=== PATIENT | male | born 1955 | race Caucasian/White ===

== ENCOUNTER → 2018-07-14 | Outpatient (CLI) | payer MEDICARE, OTHER ==
[2018-07-14 12:06] LABS: HEMATOCRIT 43.6 % (42.0-52.0); HEMOGLOBIN 14.1 g/dl (13.5-17.5); MEAN CORPUSCULAR HEMOGLOBIN 29.7 pg (27.0-33.0); MEAN CORPUSCULAR HGB CONC 32.3 g/dl (32.0-36.5); PLATELET COUNT, AUTOMATED 232 10^3/uL (150-450); RED BLOOD COUNT 4.74 10^6/uL (4.30-6.10); WHITE BLOOD COUNT 8.1 10^3/uL (4.0-10.0)
[2018-07-14 12:17] LABS: INR 0.91; PROTHROMBIN TIME 12.3 SECONDS (12.1-14.4)
[2018-07-14 12:42] LABS: ALBUMIN 3.5 GM/DL (3.2-5.2); ALBUMIN/GLOBULIN RATIO 1.21 (1.00-1.93); ALKALINE PHOSPHATASE 88 U/L (45-117); ALT/SGPT 29 U/L (12-78); ANION GAP 8 MEQ/L (8-16); AST/SGOT 23 U/L (7-37); BILIRUBIN,TOTAL 0.8 MG/DL (0.2-1.0); BLOOD UREA NITROGEN 14 MG/DL (7-18); CALCIUM LEVEL 8.4 MG/DL (8.8-10.2); CARBON DIOXIDE LEVEL 30 MEQ/L (21-32); CHLORIDE LEVEL 105 MEQ/L (98-107); GLOMERULAR FILTRATION RATE > 60.0 (>49); GLUCOSE, FASTING 82 MG/DL (70-100); POTASSIUM SERUM 4.1 MEQ/L (3.5-5.1); SODIUM LEVEL 143 MEQ/L (136-145); TOTAL PROTEIN 6.4 GM/DL (6.4-8.2)
[2018-07-14 13:19] LABS: ERYTHROCYTE SEDIMENTATION RATE 15 mm/hr (0-20)
== END ==
LOC: M LAB 11:03
DX: Z01.818 Encounter for other preprocedural examination (principal); M16.12 Unilateral primary osteoarthritis, left hip
CPT/HCPCS: 71046

== ENCOUNTER 2018-08-10 05:46 | Inpatient (IN) | payer MEDICARE, OTHER ==
[2018-08-10] MEDS ORDERED: ONDANSETRON 4MG/2ML VIAL (J2405) As Ordered (05:52)
[2018-08-10] MEDS ORDERED: BUPIVACAINE/DEXTROSE 0.75% 2 ML AMP As Ordered (05:52)
[2018-08-10] MEDS ORDERED: LIDOCAINE 2% INJ 100 MG/5 ML SDV (FOR ANES.) As Ordered (05:52)
[2018-08-10] MEDS ORDERED: dexameTHASONE 4 MG/ML 1ML VIAL (J1100) As Ordered (05:52)
[2018-08-10] MEDS ORDERED: MIDAZOLAM INJ 2 MG/2 ML VIAL (J2250) As Ordered (05:53)
[2018-08-10] MEDS ORDERED: fentaNYL 100 MCG/2 ML INJECTION (J3010) As Ordered (05:53)
[2018-08-10] MEDS ORDERED: PROPOFOL 500 MG/50 ML VIAL As Ordered (05:53)
[2018-08-10] MEDS: LR 1,000 ML IV ×4 (06:58→23:01)
[2018-08-10] MEDS: CLINDAMYCIN INJ 900MG/6ML VIAL As Ordered (08:20)
[2018-08-10] MEDS ORDERED: PHENYLEPHRINE INJ 10MG/ML VIAL (J2370) As Ordered (08:56)
[2018-08-10] MEDS ORDERED: PHENYLephrine HCL 500 MCG/5 ML (100MCG/ML) SYRINGE (J2370) As Ordered (08:56)
[2018-08-10] MEDS: MULTIVITAMINS/MINERALS THERAP 1 TAB PO (09:00)
[2018-08-10] MEDS: EPINEPHrine INJ 1 MG/ML 1ML AMP As Ordered (09:01)
[2018-08-10] MEDS: TRANEXAMIC ACID 100 MG/ML 10ML VIAL As Ordered (09:01)
[2018-08-10] MEDS ORDERED: MORPHINE 1MG/ML IN 0.9% NACL 100ML IV BAG As Ordered (09:45)
[2018-08-10] MEDS ORDERED: MORPHINE 10 MG/ML 1ML VIAL (J2270) IV (10:15)
[2018-08-10] MEDS ORDERED: NALOXONE INJ 0.4 MG/1 ML VIAL (J2310) IV (10:15)
[2018-08-10] MEDS ORDERED: ONDANSETRON 4MG/2ML VIAL (J2405) IV ×3 (10:15)
[2018-08-10] MEDS ORDERED: fentaNYL 100 MCG/2 ML INJECTION (J3010) IV (10:15)
[2018-08-10] MEDS ORDERED: diphenhydrAMINE INJ 50MG/ML VIAL (J1200) IV (10:15)
[2018-08-10] MEDS ORDERED: FLEET ENEMA PR (10:15)
[2018-08-10] MEDS ORDERED: NALBUPHINE HCL 10 MG/ML AMP (J2300) IV (10:15)
[2018-08-10] MEDS ORDERED: EPIDURAL/PCA KEYS XX (10:15)
[2018-08-10] MEDS ORDERED: PERCOCET 5MG/325MG TAB PO (10:15)
[2018-08-10] MEDS ORDERED: ACETAMINOPHEN TAB 650MG DOSE (2X325MG) PO (10:15)
[2018-08-10] MEDS: MORPHINE 1MG/ML IN 0.9% NACL 100ML IV BAG IV (10:20)
[2018-08-10] MEDS: ceFAZolin SOD 1 GM in D5W MINI-BAG PLUS 50 ML IV (15:03)
[2018-08-10] MEDS: traZODone 100 MG TAB PO (20:34)
[2018-08-10] MEDS: FAMOTIDINE 20 MG TAB PO (20:34)
[2018-08-10] MEDS: SIMVASTATIN 40 MG TAB PO (20:34)
[2018-08-11] MEDS: ceFAZolin SOD 1 GM in D5W MINI-BAG PLUS 50 ML IV (00:03)
[2018-08-11] MEDS: LEVOTHYROXINE 137MCG TABLET (0.137MG) PO (06:12)
[2018-08-11] MEDS ORDERED: ONDANSETRON 4 MG TAB (S0181) PO (06:15)
[2018-08-11 06:44] LABS: HEMATOCRIT 32.4 % (42.0-52.0); HEMOGLOBIN 10.6 g/dl (13.5-17.5); MEAN CORPUSCULAR HEMOGLOBIN 29.5 pg (27.0-33.0); MEAN CORPUSCULAR HGB CONC 32.7 g/dl (32.0-36.5); MEAN CORPUSCULAR VOLUME 90.3 fl (80.0-96.0); PLATELET COUNT, AUTOMATED 179 10^3/uL (150-450); RED BLOOD COUNT 3.59 10^6/uL (4.30-6.10); RED CELL DISTRIBUTION WIDTH 13.1 % (11.5-14.5); WHITE BLOOD COUNT 11.8 10^3/uL (4.0-10.0)
[2018-08-11 08:32] LABS: ANION GAP 5 MEQ/L (8-16); BLOOD UREA NITROGEN 21 MG/DL (7-18); CALCIUM LEVEL 7.6 MG/DL (8.8-10.2); CARBON DIOXIDE LEVEL 28 MEQ/L (21-32); CHLORIDE LEVEL 105 MEQ/L (98-107); GLOMERULAR FILTRATION RATE > 60.0 (>49); GLUCOSE, FASTING 124 MG/DL (70-100); MAGNESIUM LEVEL 1.9 MG/DL (1.8-2.4); POTASSIUM SERUM 4.9 MEQ/L (3.5-5.1); SODIUM LEVEL 138 MEQ/L (136-145)
[2018-08-11] MEDS: MULTIVITAMINS/MINERALS THERAP 1 TAB PO (08:36)
[2018-08-11] MEDS: FAMOTIDINE 20 MG TAB PO ×2 (08:36→21:30)
[2018-08-11] MEDS: FEXOFENADINE 60 MG TAB PO (08:36)
[2018-08-11] MEDS: SENOKOT S TAB PO ×2 (08:36→21:30)
[2018-08-11] MEDS: MOM 30ML SUSPENSION UDC PO (08:36)
[2018-08-11] MEDS: DULoxetine 30 MG CAP (CYMBALTA) PO (08:36)
[2018-08-11] MEDS: MIRALAX *UNIT DOSE* 17GM PACKET PO (08:36)
[2018-08-11] MEDS: ARIPiprazole 15 MG TAB (AbiLIFY) PO (11:36)
[2018-08-11] MEDS: PERCOCET 5MG/325MG TAB PO ×3 (11:48→21:30)
[2018-08-11] MEDS: RIVAROXABAN 10 MG TAB (XARELTO) PO (17:47)
[2018-08-11] MEDS: SIMVASTATIN 40 MG TAB PO (21:30)
[2018-08-12] MEDS: PERCOCET 5MG/325MG TAB PO ×4 (05:45→21:53)
[2018-08-12] MEDS: LEVOTHYROXINE 137MCG TABLET (0.137MG) PO (05:45)
[2018-08-12 06:37] LABS: MEAN CORPUSCULAR HGB CONC 32.3 g/dl (32.0-36.5); MEAN CORPUSCULAR VOLUME 89.9 fl (80.0-96.0); PLATELET COUNT, AUTOMATED 174 10^3/uL (150-450); RED BLOOD COUNT 3.45 10^6/uL (4.30-6.10); RED CELL DISTRIBUTION WIDTH 13.3 % (11.5-14.5); WHITE BLOOD COUNT 9.9 10^3/uL (4.0-10.0)
[2018-08-12] MEDS: MIRALAX *UNIT DOSE* 17GM PACKET PO (10:04)
[2018-08-12] MEDS: MOM 30ML SUSPENSION UDC PO (10:04)
[2018-08-12] MEDS: DULoxetine 30 MG CAP (CYMBALTA) PO (10:05)
[2018-08-12] MEDS: SENOKOT S TAB PO ×2 (10:05→21:38)
[2018-08-12] MEDS: MULTIVITAMINS/MINERALS THERAP 1 TAB PO (10:05)
[2018-08-12] MEDS: FAMOTIDINE 20 MG TAB PO ×2 (10:05→21:38)
[2018-08-12] MEDS: FEXOFENADINE 60 MG TAB PO (10:05)
[2018-08-12] MEDS: ARIPiprazole 15 MG TAB (AbiLIFY) PO (10:05)
[2018-08-12] MEDS: RIVAROXABAN 10 MG TAB (XARELTO) PO (17:55)
[2018-08-12] MEDS: SIMVASTATIN 40 MG TAB PO (21:38)
[2018-08-13] MEDS: LEVOTHYROXINE 137MCG TABLET (0.137MG) PO (05:44)
[2018-08-13] MEDS: PERCOCET 5MG/325MG TAB PO ×2 (05:45→13:47)
[2018-08-13] MEDS: DULoxetine 30 MG CAP (CYMBALTA) PO (08:16)
[2018-08-13] MEDS: FEXOFENADINE 60 MG TAB PO (08:17)
[2018-08-13] MEDS: FAMOTIDINE 20 MG TAB PO (08:17)
[2018-08-13] MEDS: ARIPiprazole 15 MG TAB (AbiLIFY) PO (08:17)
[2018-08-13] MEDS: SENOKOT S TAB PO (08:17)
[2018-08-13] MEDS: MULTIVITAMINS/MINERALS THERAP 1 TAB PO (08:17)
[2018-08-13] MEDS: MOM 30ML SUSPENSION UDC PO (08:17)
[2018-08-13] MEDS: MIRALAX *UNIT DOSE* 17GM PACKET PO (08:17)
== END 2018-08-13 13:54 | disposition home or self-care (01) | DRG 470 ==
LOC: M OR 05:46 → M MS5PR 10:45
PROC: 0SRB0JA Replacement of Left Hip Joint with Synthetic Substitute, Uncemented, Open Approach (ICD-10-PCS; principal; 2018-08-10 07:30)
DX: M16.12 Unilateral primary osteoarthritis, left hip (principal); I10 Essential (primary) hypertension; Z79.899 Other long term (current) drug therapy; Z88.1 Allergy status to other antibiotic agents; E03.9 Hypothyroidism, unspecified; E78.5 Hyperlipidemia, unspecified; E66.9 Obesity, unspecified; J45.909 Unspecified asthma, uncomplicated; L40.8 Other psoriasis; M81.0 Age-related osteoporosis without current pathological fracture; F32.9 Major depressive disorder, single episode, unspecified; M79.7 Fibromyalgia; G47.33 Obstructive sleep apnea (adult) (pediatric); K57.30 Diverticulosis of large intestine without perforation or abscess without bleeding; Z96.652 Presence of left artificial knee joint; Z87.891 Personal history of nicotine dependence; K21.9 Gastro-esophageal reflux disease without esophagitis

== ENCOUNTER → 2020-11-29 | Outpatient (CLI) | payer OTHER ==
[~2020-11-29] MED LIST: ABIL1TAB12 PO; ABIL2TAB OR; ABIL5TAB PO; ACET65TA OR; ADVA1AER2; ADVA1AER2 INH; ALLE60TA69 PO; ANEXSIA PO; BACTOBAN TOP; CALC-235 PO; CALC12502 PO; CALCCHW18 PO; COUM1TAB17 OR; COUM1TAB18 OR; COUMADIN; CYMB1CAP5 OR; DULO30CA9 PO; FERR325T PO; FOSA70TA PO; HYDR25TA6 OR; HYDROCODONE; ISOVUE-300 61% 50ML VIAL As Ordered ONE; LEVO137T2 PO; LEVO150T PO; LIDOCAINE 1% MDV 20ML VIAL As Ordered ONE; MEVA40TA OR; MILKSUS; MULTCAP PO; MULTIVIT PO; MULTLIQ7 PO; NAFCILLIN IV; OMEP20TA7 OR; OXACILLIN IV; OXYC10TA97; OYST500T OR; PERC5TAB12 PO; PERC5TAB8 OR; PERC5TAB8 PO; POTA75TA OR; PRIL20CA PO; PROVIGIL OR; RANI-397 PO; RANI1SYP PO; RIFA300C3 OR; RIFA300C3 PO; SENN8.6T5; SERO1TAB OR; SIMV10TA2 PO; SIMV40TA20 PO; SIMVASTIN PO; SING10TA31 OR; SING10TA31 PO; SINGULAR PO; SYNT125T OR; TEST200I14 IM; TRAZ-257 PO; VITA50TA12; WARF5VL OR; XARE10TA PO; ZOCO5TAB OR; [UNRECOGNIZED DRUG - OTHER]; [UNRECOGNIZED DRUG - OTHER] AD; [UNRECOGNIZED DRUG - OTHER] IV; cymbalta PO; heparin lock flush IVFLUSH; methylPREDNISolone SUSP 40MG/ML 1ML VIAL (DEPO MEDROL) As Ordered ONE; provigil
--- NOTE | 2020-11-29 16:49 | REP ---
INDICATION: RT SHOULDER PRIMARY OA W/PAIN. COMPARISON: None. TECHNIQUE: The procedure was performed under the direct supervision of Dr. Connor. The benefits and risks including but not limited to pain infection bleeding and anaphylaxis were explained to the patient and informed consent was obtained. The right glenohumeral joint space was localized using fluoroscopic guidance. The skin was prepped and draped in a sterile fashion. Just as the lidocaine was about to be given the patient mentioned that he had recently had a COVID vaccination. The recommendation has been to schedule patient for steroid injection 2 weeks after the 2nd dose of the COVID vaccination. This was explained to the patient and an appointment was made to return 2 weeks after his 2nd dose. Less than 6 seconds of fluoroscopy time was utilized for this procedure. FINDINGS: None IMPRESSION: Just as the lidocaine was about to be given the patient mentioned that he had recently had a COVID vaccination. The recommendation has been to schedule patient for steroid injection 2 weeks after the 2nd dose of the COVID vaccination. This was explained to the patient and an appointment was made to return 2 weeks after his 2nd dose. <Electronically signed by Jacob Mcneill > 11/29/20 1641 <Electronically signed by David Connor > 11/29/20 [id number]
== END ==
LOC: M RADPRO 10:26
PROVIDERS: ATTEND Physician Assistant
DX: M19.011 Primary osteoarthritis, right shoulder (principal); Z53.09 Procedure and treatment not carried out because of other contraindication

== ENCOUNTER → 2021-01-03 | Outpatient (CLI) | payer OTHER ==
--- NOTE | 2021-01-03 16:54 | REP ---
INDICATION: RT SHOULDER PAIN. COMPARISON: None. TECHNIQUE: The procedure was performed under the direct supervision of Dr. Connor. The benefits and risks including but not limited to pain infection bleeding and anaphylaxis were explained to the patient informed consent was obtained. The right glenohumeral joint space was localized using fluoroscopic guidance. The skin was prepped and draped in a sterile fashion. 1% lidocaine was used as a local anesthetic. Using fluoroscopic guidance a 25 gauge needle was inserted and advanced into the joint. 1 cc of Isovue 300 was injected to verify placement. 7 cc of a solution containing 5 cc of 1% lidocaine and 2 cc of Depo-Medrol 40 mg was injected. The needle was then removed. The patient tolerated the procedure well and there were no immediate complications. Less than 6 seconds of fluoroscopy time was utilized for this procedure. FINDINGS: None IMPRESSION: Fluoro guidance for right shoulder joint injection. <Electronically signed by Jacob Mcneill > 01/03/21 [id number] <Electronically signed by David Connor > 01/03/21 [id number]
== END ==
LOC: M RADPRO 11:06
PROVIDERS: ATTEND Physician Assistant
DX: M25.511 Pain in right shoulder (principal)
CPT/HCPCS: 20610; 77002; J1030; Q9967

== ENCOUNTER → 2022-12-24 | Outpatient (CLI) | payer OTHER ==
[~2022-12-24] MED LIST changes: +ALEN70TA87 PO; -FOSA70TA PO; -ISOVUE-300 61% 50ML VIAL As Ordered ONE; -LIDOCAINE 1% MDV 20ML VIAL As Ordered ONE; -methylPREDNISolone SUSP 40MG/ML 1ML VIAL (DEPO MEDROL) As Ordered ONE
[2022-12-24 15:51] LABS: C REACTIVE PROTEIN QUANTITATIV < 0.40 MG/DL (<1.0)
[2022-12-24 16:01] LABS: BASO # 0.1 10^3/uL (0.0-0.2); BASO % 0.7 % (0.0-1.0); EOS # 0.1 10^3/uL (0.0-0.5); EOS % 1.4 % (0.0-3.0); HEMATOCRIT 38.9 % (42.0-52.0); HEMOGLOBIN 11.8 g/dl (13.5-17.5); LYMPH # 1.5 10^3/uL (1.5-5.0); LYMPH % 19.6 % (24.0-44.0); MEAN CORPUSCULAR HEMOGLOBIN 27.4 pg (27.0-33.0); MEAN CORPUSCULAR HGB CONC 30.3 g/dl (32.0-36.5); MEAN CORPUSCULAR VOLUME 90.5 fl (80.0-96.0); MONO # 0.6 10^3/uL (0.0-0.8); MONO % 7.6 % (2.0-8.0); NEUTROPHILS # 5.4 10^3/uL (1.5-8.5); NEUTROPHILS % 70.3 % (36.0-66.0); PLATELET COUNT, AUTOMATED 294 10^3/uL (150-450); WHITE BLOOD COUNT 7.7 10^3/uL (4.0-10.0)
[2022-12-24 16:50] LABS: ERYTHROCYTE SEDIMENTATION RATE 22 mm/hr (0-20)
[2022-12-24 17:55] LABS: CREATININE FOR GFR 0.92 MG/DL (0.70-1.30); GLOMERULAR FILTRATION RATE > 60.0 (>49)
[2022-12-24 18:05] LABS: BLOOD UREA NITROGEN 20 MG/DL (9-23)
== END ==
LOC: M PLALAB 12:39
PROVIDERS: ATTEND Orthopaedic Surgery
DX: Z98.1 Arthrodesis status (principal); Z47.89 Encounter for other orthopedic aftercare; Z79.899 Other long term (current) drug therapy

== ENCOUNTER → 2022-12-29 | Outpatient (CLI) | payer OTHER ==
[~2022-12-29] MED LIST changes: +PROHANCE 279.3MG/ML 15ML VIAL ONE; +PROHANCE 279.3MG/ML 5ML VIAL ONE
== END ==
LOC: M PLAIMG 08:19
PROVIDERS: ATTEND Orthopaedic Surgery
DX: Z98.1 Arthrodesis status (principal)
CPT/HCPCS: 72158; A9576

== ENCOUNTER → 2024-04-21 | Outpatient (CLI) | payer OTHER ==
[~2024-04-21] MED LIST changes: +CALC-423 PO; -CALCCHW18 PO; -PROHANCE 279.3MG/ML 15ML VIAL ONE; -PROHANCE 279.3MG/ML 5ML VIAL ONE
== END ==
LOC: M RAD 09:06
PROVIDERS: ATTEND Physician Assistant
DX: M25.561 Pain in right knee (principal); M25.551 Pain in right hip; Z96.651 Presence of right artificial knee joint
CPT/HCPCS: 78315; A9503